=== PATIENT | female | born 2000 | race American Indian/Alaskan Native ===

== ENCOUNTER 2021-02-05 14:21 | Emergency (ER) | payer OTHER ==
[2021-02-05] MEDS ORDERED: ACETAMINOPHEN 325 MG TAB PO ONE (14:44)
--- NOTE | 2021-02-05 15:16 | Emergency Department Report ---
ED Lower Extremity HPI - General Chief Complaint: Extremity Injury, Lower Stated Complaint: Right foot pain Time Seen by Provider: 02/05/21 14:29 Source: patient Mode of arrival: Ambulatory Limitations: No Limitations - History of Present Illness Initial Comments: Patient is a 20-year-old female presents emergency room complaints of a right big toe injury that occurred around 9 AM this morning. Patient states that she was wearing crocs shoes and someone accidentally stepped on her right big toe. She states that she tried to continue working but the pain was increasing with ambulation. she denies any other injury. She states then she began having swelling and bruising. She states that there was a small amount of bleeding from the big toe. She denies any numbness or weakness. No past medical history. Allergies strawberries. Patient is currently 20 weeks . - Related Data Previous Rx's Medication Instructions Recorded Last Taken Type Acetaminophen [Tylenol] 650 mg PO Q8HR PRN #20 capsule 02/05/21 Unknown Rx Allergies Allergy/AdvReac Type Severity Reaction Status Date / Time strawberry Allergy Severe Anaphylaxis Verified 02/05/21 14:25 ED Review of Systems ROS: Stated complaint: Right foot pain Other details as noted in HPI Comment: All other systems reviewed and negative ED Past Medical Hx - Medications Home Medications: Home Medications Medication Instructions Recorded Confirmed Last Taken Type Acetaminophen [Tylenol] 650 mg PO Q8HR PRN #20 capsule 02/05/21 Unknown Rx ED Physical Exam - General Limitations: No Limitations General appearance: alert, in no apparent distress - Head Head exam: Present: atraumatic, normocephalic - Eye Eye exam: Present: normal appearance - ENT ENT exam: Present: mucous membranes moist - Extremities Exam Extremities exam: Present: other (ttp to the right big toe, edema and ecchymosis present, small abrasion, nailbed is intact, FROM of the right ankle/foot/toes, neurovascularly intact) - Neurological Exam Neurological exam: Present: alert, oriented X3 - Psychiatric Psychiatric exam: Present: normal affect, normal mood - Skin Skin exam: Present: warm, dry ED Course Vital Signs 02/05/21 02/05/21 14:24 16:02 Temperature 98.4 F 97.7 F Pulse Rate 69 72 Respiratory 15 16 Rate Blood Pressure 97/73 110/78 [Right] O2 Sat by Pulse 100 98 Oximetry ED Lower Extremity MDM - Lab Data Vital Signs 02/05/21 02/05/21 14:24 16:02 Temperature 98.4 F 97.7 F Pulse Rate 69 72 Respiratory 15 16 Rate Blood Pressure 97/73 110/78 [Right] O2 Sat by Pulse 100 98 Oximetry - Radiology Data Radiology results: report reviewed Ordering Physician: KRAIG TOMPKINS Date of Service: 02/05/21 Procedure(s): XR foot 3+V RT Accession Number(s): [id number] cc: KRAIG TOMPKINS Fluoro Time In Minutes: RIGHT FOOT 3 VIEWS 1459 INDICATION: right great toe injury COMPARISON: None available. FINDINGS: A mildly complex fracture is seen through the base of the distal phalanx of the great toe without angulation or displacement. This is seen medially and ventrally. I do not clearly see a fracture line extending into the joint space. No dislocation is seen. No other fractures are noted. Signer Name: Pepe العلي MD Signed: 02/05/2021 3:17 PM Workstation Name: [id number] Transcribed By: GJ Dictated By: Pepe العلي MD Electronically Authenticated By: Pepe العلي MD Signed Date/Time: 02/05/211516 DD/ 15 TD/TT: - Medical Decision Making Patient is a 20-year-old female presents emergency room complaints of a right big toe injury that occurred around 9 AM this morning. Patient states that she was wearing crocs shoes and someone accidentally stepped on her right big toe. She states that she tried to continue working but the pain was increasing with ambulation. she denies any other injury. She states then she began having swelling and bruising. She states that there was a small amount of bleeding from the big toe. She denies any numbness or weakness. No past medical history. Allergies strawberries. Patient is currently 20 weeks . VSS. on exam: ttp to the right big toe, edema and ecchymosis present, small abrasion, nailbed is intact, FROM of the right ankle/foot/toes, neurovascularly intact. XR right foot: FINDINGS: A mildly complex fracture is seen through the base of the distal phalanx of the great toe without angulation or displacement. This is seen medially and ventrally. I do not clearly see a fracture line extending into the joint space. No dislocation is seen. No other fractures are noted. pt placed in post op shoe and david taping was performed and pt was given crutches. advised pt please take medication as prescribed. Follow-up with orthopedic doctor. Return to emergency room for any new or worsening symptoms. Critical care attestation.: If time is entered above; I have spent that time in minutes in the direct care of this critically ill patient, excluding procedure time. ED Disposition Clinical Impression: Toe fracture Qualifiers: Encounter type: initial encounter Toe: great toe Fracture type: closed Phalanx: distal Fracture alignment: nondisplaced Laterality: right Qualified Code(s): S92.424A - Nondisplaced fracture of distal phalanx of right great toe, initial encounter for closed fracture Disposition: 01 HOME / SELF CARE / HOMELESS Is pt being admited?: No Does the pt Need Aspirin: No Condition: Stable Instructions: Toe Fracture, [id number] Additional Instructions: Please take medication as prescribed. Follow-up with orthopedic doctor. Return to emergency room for any new or worsening symptoms. Prescriptions: Acetaminophen [Tylenol] 650 mg PO Q8HR PRN #20 capsule PRN Reason: pain Referrals: PRIMARY CAREMD [Primary Care Provider] - 3-5 Days YENY HENNING MD [Staff Physician] - 3-5 Days [facility] [Provider Group] - 3-5 Days Time of Disposition: 15:30 Print Language: HUNGARIAN
--- NOTE | 2021-02-05 15:22 | XRay Report ---
RIGHT FOOT 3 VIEWS 1459 INDICATION: right great toe injury COMPARISON: None available. FINDINGS: A mildly complex fracture is seen through the base of the distal phalanx of the great toe w ithout angulation or displacement. This is seen medially and ventrally. I do not clearly see a fractu re line extending into the joint space. No dislocation is seen. No other fractures are noted. Signer Name: Pepe العلي MD Signed: 02/05/2021 3:17 PM Workstation Name: [id number]
[2021-02-05 16:11] VITALS: BP 110/78
== END 2021-02-05 16:32 | disposition home or self-care (01) ==
LOC: ED 14:21
DX: S92.424A Nondisplaced fracture of distal phalanx of right great toe, initial encounter for closed fracture (principal); W50.0XXA Accidental hit or strike by another person, initial encounter; Y93.89 Activity, other specified; Y92.89 Other specified places as the place of occurrence of the external cause; Y99.8 Other external cause status
CPT/HCPCS: 99283